=== PATIENT | male | born 1980 | race Caucasian/White ===

== ENCOUNTER 2018-11-28 10:59 | Inpatient (IN) | payer OTHER ==
[~2018-11-28] VITALS: Ht 175.3 cm; Wt 92.2 kg
[2018-11-28 12:00] VITALS: BP 149/94
--- NOTE | 2018-11-28 12:00 | NUR ---
Time: 1200 A 38 year old MALE admitted to under services of TESFAYE RENDON DO. Pt. arrived via ambulatory from [place]. Chief complaint: OPIATE WITHDRAWL. KELLY MELGAR
[2018-11-28] MEDS ORDERED: ZOLOFT100 MG PO (12:36)
--- NOTE | 2018-11-28 13:02 | NUR ---
PATIENT MEETS [facility], CIWA= 21. PATIENT WILL FOLLOW UP WITH HIS DOCTOR, FOR REVIA ONCE DISCHARGED. [facility] WILL ALSO LOCATE A TREATMENT CENTER THAT ACCEPTS THE PATIENT'S INSURANCE AND SCHEDULE HIM FOR IOP. SHARON KOROMA MS WATER QUALITY CONTROL ENGINEER
[2018-11-28 13:19] LABS: BASO # 0.1 10*3/uL (0.0-0.1); EOS # 0.1 10*3/uL (0.0-0.4); EOS % 0.8 % (1.0-4.0); HEMATOCRIT 45.9 % (42.0-52.0); HEMOGLOBIN 15.7 g/dl (14.0-18.0); LYMPH % 16.8 % (27.0-41.0); MEAN CELL VOLUME 87.8 fl (80.0-94.0); MEAN CORPUSCULAR HGB CONC 34.2 g/dl (33.0-37.0); MEAN PLATELET VOLUME 11.3 fl (9.6-12.3); MONO # 0.5 10*3/uL (0.1-1.0); MONO % 9.1 % (3.0-9.0); NEUT # 4.3 10*3/uL (2.3-7.9); PLATELET COUNT AUTOMATED 146 10*3/uL (130-400); RED BLOOD COUNT 5.23 10*6/uL (4.50-5.90); RED CELL DISTRI WIDTH 14.9 % (0-14.5); WHITE BLOOD COUNT 5.9 10*3/uL (4.8-10.8)
[2018-11-28 13:29] LABS: BILIRUBIN NEGATIVE (NEGATIVE); BLOOD NEGATIVE (NEGATIVE); CLARITY CLEAR (CLEAR); COLOR YELLOW (YELLOW); GLUCOSE NEGATIVE (NEGATIVE); KETONE NEGATIVE (NEGATIVE); LEUKO ESTERASE NEGATIVE (NEGATIVE); NITRITE NEGATIVE (NEGATIVE)
--- NOTE | 2018-11-28 13:40 | NUR ---
IV started right antecubital with #20 protective cath after 1 attempts. Site prepped with Chloroprep. Sterile dressing applied. Patient tolerated procedure well. KELLY MELGAR
[2018-11-28 13:41] LABS: URINE AMPHETAMINES < 1000 (1000ng/ml); URINE BARBITURATES < 200 (200ng/ml); URINE BENZODIAZEPINES < 200 (200ng/ml); URINE CANNABINOIDS (THC) > 50 (50ng/ml); URINE COCAINE < 300 (300ng/ml); URINE METHADONE < 300 (300ng/ml); URINE OPIATES < 300 (300ng/ml)
[2018-11-28 13:44] LABS: URINE PHENCYCLIDINE < 25 (25ng/ml)
[2018-11-28 13:51] LABS: ALKALINE PHOSPHATASE 69 U/L (45-117); BUN 13 mg/dl (7-24); CHLORIDE 104 mmol/L (98-107); CREATININE 0.92 mg/dL (0.70-1.30); POTASSIUM 3.9 mmol/L (3.5-5.1); SGOT/AST 31 IU/L (3-35); SGPT/ALT 28 U/L (12-78); SODIUM 139 mmol/L (136-145); TOTAL PROTEIN 7.6 gm/dL (6.4-8.2)
[2018-11-28 13:56] LABS: ETHYL ALCOHOL < 3.0 mg/dl (<3)
--- NOTE | 2018-11-28 13:57 | NUR ---
PATIENT MEDICATED FOR WITHDRAWL SYMPTOMS. ATIVAN AND ROBAXIN ADMINISTERED PRESCRIBED. WILL MONITOR FOR EFFECTIVENESS.
[2018-11-28 14:02] LABS: BACTERIA TRACE
--- NOTE | 2018-11-28 14:57 | NUR ---
PATIENT STATES THAT MUSCLE CRAMPING IS BETTER AT THIS TIME. STATES THAT ANXIETY IS STILL HIGH BUT BETTER AFTER ADMINISTRATION OF ATIVAN. WILL CONTINUE TO MONITOR.
--- NOTE | 2018-11-28 15:52 | NUR ---
PATIENT REQUESTING MEDICATION FOR STOMACH CRAMPING, NAUSEA, AND ANXIETY. BENTYL, ZOFRAN, AND VISTERIL ADMINISTERED PRESCRIBED. WILL MONITOR FOR EFFECTIVENESS.
[2018-11-28 16:00] VITALS: BP 129/81
--- NOTE | 2018-11-28 16:52 | NUR ---
PATIENT STATES THAT NAUSEA HAS SUBSIDED AT THIS TIME. ANXIETY IS BETTER AT THIS TIME. WILL CONTINUE TO MONITOR.
[2018-11-28 20:00] VITALS: BP 117/67
[2018-11-29] VITALS: BP 117/63
--- NOTE | 2018-11-29 07:34 | NUR ---
PT RESTING IN B ED. EYES CLOSED. NO DISTRESS NOTED. CALL LIGHT WITHIN REACH WILL MONITOR
[2018-11-29 08:00] VITALS: BP 114/60
--- NOTE | 2018-11-29 09:48 | NUR ---
PT MEDICATED WITH 1 MG ATIVAN FOR RESTLESSNESS WILL MONITOR CALL LIGHT WITHIN REACH
--- NOTE | 2018-11-29 11:00 | NUR ---
PT RESTING IN BED, EYES CLOSED ATIVAN APPEARS TO BE HELPING WILL MONITOR
[2018-11-29 12:00] VITALS: BP 125/82
--- NOTE | 2018-11-29 14:45 | NUR ---
PATIENT HAS BEEN SCHEDULED WITH [facility]GRESS[facility] COUNSELING FOR IOP. PATIENT'S APPOINTMENT IS SUNDAY, DECEMBER 02, 2018 AT 1:00PM. PATIENT IS AWARE AND AGREES TO HIS AFTERCARE PLAN. SHARON KOROMA MS TABLEAU ADMINISTRATOR
--- NOTE | 2018-11-29 15:50 | NUR ---
PT MEDICATED WITH ATIVAN FOR ANXIETY AND RESTLESSNESS. CALL LIGHT IN REACH. WILL MONITOR
[2018-11-29 16:00] VITALS: BP 137/62
--- NOTE | 2018-11-29 16:50 | NUR ---
MEDICATION EFFECTIVE PER PT. CALL LIGHT IN REACH. WILL MONITOR
--- NOTE | 2018-11-29 19:44 | NUR ---
PT WITH TREMORS, SHIVERING, AND FEELING OF 'PINS/NEEDLES'. DR ARIZA NOTIFIED OF ACUTE WITHDRAWAL SYMPTOMS AND STATED OK TO GIVE PRN IV ATIVAN NOW. WILL CONT TO MONITOR. CALL LIGHT IN REACH.
[2018-11-29 20:00] VITALS: BP 121/55; BP 137/62
--- NOTE | 2018-11-29 20:44 | NUR ---
PT STATES A LITTLE BIT OF RELIEF FROM THE IV ATIVAN. PT GIVEN ROBAXIN, VISTARIL AND MOTRIN AT THIS TIME FOR C/O ANXIETY, BACK PAIN AND RESTLESS LEGS. WILL CONT TO MONITOR. CALL LIGHT IN REACH.
--- NOTE | 2018-11-29 22:31 | NUR ---
PT RESTING AT THIS TIME. PRN MEDS EFFECTIVE
[2018-11-30] VITALS: BP 103/49
--- NOTE | 2018-11-30 01:52 | NUR ---
PT RESTING AT THIS TIME. WILL CONT TO MONITOR. CALL LIGHT IN REACH.
--- NOTE | 2018-11-30 06:19 | NUR ---
PT C/O FEELING "LIKE CRAP", TREMORS, HOT/COLD CHILLS, RESTLESSNESS, LEG CRAMPS AND BACK PAIN OF 6/10. IV ATIVAN, MOTRIN AND ROBAXIN GIVEN AT THIS TIME. WILL CONT TO MONITOR. CALL LIGHT IN REACH.
[2018-11-30 08:00] VITALS: BP 110/61
--- NOTE | 2018-11-30 08:35 | NUR ---
PT STATES THAT ATIVAN HELPED A LITTLE PT MEDICATED WITH VISTARIL FOR ANXIETY WILL MONITOR
[2018-11-30 12:00] VITALS: BP 115/69
--- NOTE | 2018-11-30 13:00 | NUR ---
PT MEDICATED WITH ATIVAN FOR ANXIETY WILL MONITOR
--- NOTE | 2018-11-30 15:32 | NUR ---
PT RESTING IN BED, EYES CLOSED. ATIVAN APPEARS EFFECTIVE. WILL MONITOR
[2018-11-30 16:00] VITALS: BP 105/54
[2018-11-30 20:00] VITALS: BP 108/60
[2018-12-01] VITALS: BP 113/59
--- NOTE | 2018-12-01 | NUR ---
PATIENT WAS FOUND OUTSIDE SMOKING BY HOSPITAL SECURITY. NURSING DOCUMENTUM CONSULTANT NOTIFIED WELL DR. REEVES. PER DR. REEVES THIS PATIENT WILL BE DISCHARGED FOR [facility] OF [facility].
--- NOTE | 2018-12-01 01:49 | NUR ---
Discharge instructions reviewed with patient/family. Patient receptive and verbalizes understanding. Follow-up care arranged. Written instructions given to patient/family. IV removed and bandaged. LARRY OWENS
== END 2018-12-01 01:49 | disposition home or self-care (01) | DRG 897 ==
LOC: 4E 10:59
PROVIDERS: ADMIT Internal Medicine
DX: F10.239 Alcohol dependence with withdrawal, unspecified (principal); F12.10 Cannabis abuse, uncomplicated; Z71.6 Tobacco abuse counseling; R19.7 Diarrhea, unspecified; F43.10 Post-traumatic stress disorder, unspecified; Y90.9 Presence of alcohol in blood, level not specified; F90.9 Attention-deficit hyperactivity disorder, unspecified type; F32.9 Major depressive disorder, single episode, unspecified; F41.9 Anxiety disorder, unspecified; E03.9 Hypothyroidism, unspecified; Z82.49 Family history of ischemic heart disease and other diseases of the circulatory system; Z72.0 Tobacco use